=== PATIENT | female | born 1970 | race Two or more races ===

== ENCOUNTER 2021-07-31 10:00 | Emergency (ER) | payer SELFPAY ==
[~2021-07-31] VITALS: Ht 170.2 cm; Wt 77.1 kg
[2021-07-31] MEDS ORDERED: HALOPERIDOL LACTATE 5 MG/ML INJ VIAL ONE (10:26)
[2021-07-31] MEDS ORDERED: LORazepam 2MG/ML-1ML VIAL ONE (10:26)
[2021-07-31] MEDS ORDERED: HALOPERIDOL LACTATE 5 MG/ML INJ VIAL IM ONE (10:30)
[2021-07-31] MEDS ORDERED: LORazepam 2MG/ML-1ML VIAL IM ONE (10:30)
[2021-07-31 14:58] LABS: Basophils # (auto) 0.1 10 ^3/uL (0-0.2); Basophils % (auto) 0.6 % (0.0-2.0); Eosinophils # (auto) 0.2 10 ^3/uL (0-0.8); Hematocrit 39.2 % (36.0-46.0); Hemoglobin 13.5 g/dL (12.2-16.2); Lymphocytes # (auto) 2.7 10 ^3/uL (0.4-5.4); Mean Corpuscular Hemoglobin 28.9 pg (28.0-32.0); Mean Corpuscular Hgb Conc. 34.4 g/dL (32.0-36.0); Mean Corpuscular Volume 83.9 fL (80.0-100.0); Monocytes # (auto) 0.7 10 ^3/uL (0-1.3); Monocytes % (auto) 6.9 % (0.0-12.0); Neutrophils # (auto) 6.4 10 ^3/uL (1.6-8.6); Neutrophils % (auto) 63.5 % (37.0-80.0); Nucleated Red Blood Cells % 0.1 %; Red Blood Cells 4.68 10^6/uL (4.0-5.20); Red Cell Distribution Width 13.3 % (11.8-14.3); White Blood Cell 10.1 10^3/uL (4.4-10.8)
[2021-07-31 15:13] LABS: Albumin 3.8 g/dL (3.4-5.0); Potassium 3.7 mmol/L (3.5-5.1)
[2021-07-31 15:18] LABS: BUN/Creatinine Ratio 10.6; Bilirubin, Total 0.6 mg/dL (0.2-1.0); Calcium 8.9 mg/dL (8.5-10.1)
[2021-08-01 06:41] VITALS: BP 95/36
== END 2021-08-01 07:00 | disposition home or self-care (01) ==
LOC: ER 10:00 → EDBD 10:00 → ER 08-01 07:00
DX: F41.9 Anxiety disorder, unspecified (principal)
CPT/HCPCS: 36415; 80053; 80320; 85025; 96372; 99284; J1630; J2060